=== PATIENT | female | born 1945 | race African-American/Black ===

== ENCOUNTER → 2016-11-23 | Outpatient (CLI) | payer OTHER ==
[~2016-11-23] MED LIST: LISI10TA6
== END | disposition home or self-care (01) ==
LOC: LAB 11:18
DX: I10 Essential (primary) hypertension (principal); E03.9 Hypothyroidism, unspecified
CPT/HCPCS: 36415; 84443; 85652; 86141

== ENCOUNTER → 2016-12-29 | Outpatient (CLI) | payer OTHER ==
[2016-12-29 10:22] LABS: Urine Bilirubin Negative (Negative); Urine Blood Negative /uL (Negative); Urine Color Yellow (Yellow); Urine Glucose Normal (Normal); Urine Ketone TRACE (Negative); Urine Nitrite Negative (Negative); Urine RBC 2 /hpf (0 - 4); Urine Squamous Epithelial Cell FEW /hpf (<5); Urine Urobilinogen Normal (Negative); Urine pH 6.5 (5.0-8.0)
[2016-12-29 10:23] LABS: Basophils # (auto) 0 uL; Basophils % (auto) 0.4 % (0.0-2.0); CONDITION Y; Eosinophils # (auto) 0.3 uL; Eosinophils % (auto) 5.3 % (0.0-7.0); Hematocrit 37.5 % (36.0-46.0); Hemoglobin 12.7 g/dL (12.2-16.2); Lymphocytes # (auto) 1.3 uL; Lymphocytes % (auto) 22.4 % (10.0-50.0); Mean Corpuscular Hemoglobin 30.2 pg (28.0-32.0); Mean Corpuscular Hgb Conc. 33.9 g/dL (32.0-36.0); Mean Corpuscular Volume 89.1 fL (80.0-100.0); Mean Platelet Volume 9.4 fL (7.4-10.4); Monocytes # (auto) 0.4 uL; Monocytes % (auto) 6.4 % (0.0-12.0); Neutrophils # (auto) 3.7 uL; Neutrophils % (auto) 65.5 % (37.0-80.0); Platelet Count (auto) 227 10^3/uL (140-450); Red Cell Distribution Width 14.7 % (11.6-16.0); White Blood Cell 5.7 10^3/uL (4.4-10.8)
[2016-12-29 10:47] LABS: Albumin 3.4 g/dL (3.4-5.0); BUN/Creatinine Ratio 26.3; Bilirubin, Total 0.4 mg/dL (0.2-1.0); Calcium 8.8 mg/dL (8.5-10.1); Potassium 3.2 mmol/L (3.5-5.1); Total Protein 6.7 g/dL (6.4-8.2)
== END | disposition home or self-care (01) ==
LOC: LAB 09:49
PROVIDERS: ATTEND Internal Medicine
DX: I10 Essential (primary) hypertension (principal); E11.9 Type 2 diabetes mellitus without complications; E78.5 Hyperlipidemia, unspecified; E55.9 Vitamin D deficiency, unspecified
CPT/HCPCS: 36415; 80053; 80061; 81001; 82306; 83036; 84443; 85025

== ENCOUNTER → 2017-01-25 | Outpatient (CLI) | payer OTHER ==
[2017-01-25 16:17] LABS: Urine Bilirubin Negative (Negative); Urine Blood Negative /uL (Negative); Urine Color Yellow (Yellow); Urine Glucose Normal (Normal); Urine Ketone 1+ (Negative); Urine Nitrite Negative (Negative); Urine RBC 1 /hpf (0 - 4); Urine Squamous Epithelial Cell FEW /hpf (<5); Urine Urobilinogen Normal (Negative)
== END | disposition home or self-care (01) ==
LOC: LAB 15:51
PROVIDERS: ATTEND Internal Medicine
DX: N39.0 Urinary tract infection, site not specified (principal)
CPT/HCPCS: 81001

== ENCOUNTER → 2017-09-17 | Outpatient (CLI) | payer OTHER ==
[2017-09-17 13:06] LABS: Albumin 3.6 g/dL (3.4-5.0); Bilirubin, Direct 0.1 mg/dL (0-0.2); Bilirubin, Total 0.4 mg/dL (0.2-1.0); Total Protein 7.1 g/dL (6.4-8.2)
== END | disposition home or self-care (01) ==
LOC: LAB 11:28
PROVIDERS: ATTEND Internal Medicine
DX: I11.9 Hypertensive heart disease without heart failure (principal); N39.0 Urinary tract infection, site not specified; E78.2 Mixed hyperlipidemia
CPT/HCPCS: 36415; 80076; 82306; 82550; 84443; 87086

== ENCOUNTER → 2017-10-23 | Outpatient (CLI) | payer OTHER ==
[2017-10-23 09:55] LABS: Urine Bacteria FEW /hpf (None Seen); Urine Blood Negative /uL (Negative); Urine Specific Gravity 1.019 (1.001-1.035); Urine WBC 19 /hpf (0 - 5)
== END | disposition home or self-care (01) ==
LOC: LAB 08:46
PROVIDERS: ATTEND Internal Medicine
DX: N39.0 Urinary tract infection, site not specified (principal); E78.5 Hyperlipidemia, unspecified; I10 Essential (primary) hypertension; E11.9 Type 2 diabetes mellitus without complications; E03.9 Hypothyroidism, unspecified; R53.83 Other fatigue; Z79.899 Other long term (current) drug therapy
CPT/HCPCS: 81001; 82607; 87086

== ENCOUNTER → 2017-12-27 | Outpatient (CLI) | payer OTHER | END | disposition home or self-care (01) | LOC: LAB 16:39 | PROVIDERS: ATTEND Urology | DX: R31.9 Hematuria, unspecified (principal); I10 Essential (primary) hypertension; E03.9 Hypothyroidism, unspecified; E78.5 Hyperlipidemia, unspecified; E11.9 Type 2 diabetes mellitus without complications | CPT/HCPCS: 87086 ==

== ENCOUNTER → 2018-01-04 | Outpatient (CLI) | payer OTHER ==
[2018-01-04 15:05] LABS: Albumin 3.7 g/dL (3.4-5.0); BUN/Creatinine Ratio 26.4; Bilirubin, Total 0.4 mg/dL (0.2-1.0); Calcium 8.4 mg/dL (8.5-10.1); Potassium 4.1 mmol/L (3.5-5.1); Total Protein 7.4 g/dL (6.4-8.2)
== END | disposition home or self-care (01) ==
LOC: LAB 14:32
PROVIDERS: ATTEND Internal Medicine
DX: N13.30 Unspecified hydronephrosis (principal); I10 Essential (primary) hypertension; E03.9 Hypothyroidism, unspecified; E78.5 Hyperlipidemia, unspecified; E11.9 Type 2 diabetes mellitus without complications
CPT/HCPCS: 36415; 80053

== ENCOUNTER → 2018-01-30 | Outpatient (CLI) | payer OTHER ==
[2018-01-30 16:39] LABS: Calcium 9.3 mg/dL (8.5-10.1); Potassium 4.2 mmol/L (3.5-5.1)
== END | disposition home or self-care (01) ==
LOC: LAB 15:57
PROVIDERS: ATTEND Internal Medicine
DX: I11.0 Hypertensive heart disease with heart failure (principal); I50.30 Unspecified diastolic (congestive) heart failure
CPT/HCPCS: 36415; 80048